=== PATIENT | male | born 1960 | race Caucasian/White ===

== ENCOUNTER 2018-02-26 20:02 | Emergency (ER) | payer OTHER ==
[~2018-02-26] VITALS: Ht 175.3 cm; Wt 86.3 kg
[~2018-02-26 20:02] MED LIST: CELEXA40 MG PO; COGENTIN1 MG PO; LITHIUM CARBON300 MG PO; RISPERDAL4 MG PO
[2018-02-26 22:10] VITALS: BP 133/78
== END 2018-02-26 22:11 ==
LOC: EME 20:02
DX: S05.01XA Injury of conjunctiva and corneal abrasion without foreign body, right eye, initial encounter (principal); S05.02XA Injury of conjunctiva and corneal abrasion without foreign body, left eye, initial encounter; S01.112A Laceration without foreign body of left eyelid and periocular area, initial encounter; X99.8XXA Assault by other sharp object, initial encounter; Y92.149 Unspecified place in prison as the place of occurrence of the external cause; Z98.41 Cataract extraction status, right eye; Z23 Encounter for immunization; Z87.891 Personal history of nicotine dependence
CPT/HCPCS: 99281; 99284